=== PATIENT | female | born 1940 | race Hispanic/Latino ===

== ENCOUNTER 2017-03-03 12:54 | Observation (INO) | payer MEDICARE, OTHER ==
[2017-03-03 13:31] VITALS: BMI 24.0
--- NOTE | 2017-03-03 13:43 | ED PDOC ---
Arrival/HPI - General Historian: Patient - History of Present Illness Time/Duration: Prior to Arrival Symptom Onset: Sudden Symptom Course: Resolved <Molly López - Last Filed: 03/03/17 15:31> <Josiahgypsythomas Ray - Last Filed: 03/03/17 15:33> - General Chief Complaint: Syncope Time Seen by Provider: 03/03/17 12:57 - History of Present Illness Narrative History of Present Illness (Text): 03/03/17 13:29 76 yo F w h/o CAD s/p CABG, NIDDM2, Hypertension, Hypercholesterolemia, GERD, IBS presents to ER s/p presyncopal event while shopping in [employer] this morning. Patient states she was in a lovell this morning, did not eat, went shopping and running errands and while in [employer] suddenly felt hot and slightly dizzy and like she would pass out; proceeded to sit down. Denies LOC, denies any trauma. Patient denies CP, SOB, abd pain, headache, diaphoresis, palpitations prior to event. Denies h/o rashes, edema, orthopnea, n/v/d/c, fevers, chills. Patient had identical complaints 2014 after she did not eat that morning, and eventually syncopized in [employer] at that time. Patient was found to have diffuse T wave inversions on EKG at that time and was recommended to have cardiac catheterization, however she refused because she wanted to followup with her hatchery worker in [place]. Patient states she did followup with her hatchery worker who reportedly told her he did not want to do a cardiac catheterization; patient states she never has cath after that discharge. Her hatchery worker reportedly returned in November and she does not yet have a new hatchery worker. PMD: Dr. Childs ([place]) (Molly López) Past Medical History - Provider Review Nursing Documentation Reviewed: Yes - Travel History Have you recently traveled outside [place] w/in the past 3 mons?: No - Cardiac Hx Cardiac Disorders: Yes (open heart sx 10 years ago) Hx Hypertension: Yes - Pulmonary Hx Respiratory Disorders: No - Neurological Hx Neurological Disorder: No (denies) - HEENT Hx HEENT Disorder: (denies) - Renal Hx Renal Disorder: (denies) - Endocrine/Metabolic Hx Diabetes Mellitus Type 2: Yes - Hematological/Oncological Hx Blood Disorders: (denies) - Integumentary Hx Dermatological Disorder: (denies) - Musculoskeletal/Rheumatological Hx Arthritis: Yes (HANDS, KNEES) Hx Falls: Yes (11/08/13) Hx Unsteady Gait: Yes (11/08/13) - Gastrointestinal Hx Gastrointestinal Disorders: (IRRITABLE BOWEL SYNDROME) - Genitourinary/Gynecological Hx Genitourinary Disorders: (denies) - Psychiatric Hx Psychophysiologic Disorder: (denies) Hx Substance Use: No - Surgical History Hx Open Heart Surgery: Yes (10 YRS AGO) - Suicidal Assessment Feels Threatened In Home Enviroment: No <Molly López - Last Filed: 03/03/17 15:31> Family/Social History Family/Social History: CVA/TIA, Diabetes, Hypertension, CAD/SC, Neoplasm/Cancer Smoking Status: Never Smoked Hx Alcohol Use: No Hx Substance Use: No <Molly López - Last Filed: 03/03/17 15:31> - Physician Review Nursing Documentation Reviewed: Yes <Ray Sharp DO - Last Filed: 03/03/17 15:33> Allergies/Home Meds <Molly López - Last Filed: 03/03/17 15:31> <Ray Sharp DO - Last Filed: 03/03/17 15:33> Allergies/Adverse Reactions: Allergies No Known Allergies Allergy (Verified 11/08/13 14:00) Home Medications: Home Meds Medication Instructions Recorded Confirmed Amlodipine Besylate [Norvasc] 10 mg PO DAILY 11/08/13 03/03/17 Aspirin 81 mg PO DAILY 11/08/13 03/03/17 Atenolol 100 mg PO DAILY 11/08/13 03/03/17 Glyburide 2.5 mg PO DAILY 11/08/13 03/03/17 Rabeprazole Sodium [Aciphex] 20 mg PO DAILY 11/08/13 03/03/17 Simvastatin [Zocor] 60 mg PO DAILY 11/08/13 03/03/17 Valsartan/Hydrochlorothiazide 1 tab PO DAILY 03/03/17 03/03/17 [Valsartan and Hydrochlorothiazide 12.5 mg-160] Review of Systems - Physician Review All systems were reviewed & negative as marked: Yes - Review of Systems Constitutional: Normal. absent: Fatigue, Fevers Eyes: Normal. absent: Vision Changes, Photophobia ENT: Normal Respiratory: Normal. absent: SOB, Cough, Sputum, Wheezing Cardiovascular: Normal. absent: Chest Pain, Palpitations, Edema, Calf Pain, CUEVAS , Orthopnea, Syncope (pre-syncope, no LOC, no head trauma) Gastrointestinal: Normal. absent: Abdominal Pain, Constipation, Diarrhea, Nausea, Vomiting Genitourinary Female: Normal. absent: Dysuria, Frequency Musculoskeletal: Normal. absent: Back Pain, Neck Pain Skin: Normal. absent: Rash, Skin Lesions Neurological: Normal. absent: Headache, Dizziness Endocrine: Normal. absent: Diaphoresis, Polyuria, Polydipsia Hemo/Lymphatic: Normal. absent: Adenopathy Psychiatric: Normal. absent: Depression <Molly López - Last Filed: 03/03/17 15:31> Physical Exam Vital Signs Reviewed: Yes Temperature: Afebrile Blood Pressure: Normal Pulse: Regular Respiratory Rate: Normal Appearance: Positive for: Well-Appearing, Non-Toxic, Comfortable Pain Distress: None Mental Status: Positive for: Alert and Oriented X 3 Finger Stick Blood Glucose: 263 - Systems Exam Head: Present: Atraumatic, Normocephalic Pupils: Present: PERRL Extroacular Muscles: Present: EOMI Conjunctiva: Present: Normal. No: Icteric Ears: Present: Normal Mouth: Present: Moist Mucous Membranes Neck: Present: Normal Range of Motion. No: Meningeal Signs, JVD Respiratory/Chest: Present: Clear to Auscultation, Decreased Breath Sounds ( mildly diminished diffusely). No: Respiratory Distress, Accessory Muscle Use, Wheezes, Retracting Cardiovascular: Present: Regular Rate and Rhythm, Murmurs (3/6 systolic LSB), Normal S1, S2 Abdomen: Present: Normal Bowel Sounds. No: Tenderness, Distention, Peritoneal Signs Upper Extremity: Present: Normal Inspection. No: Cyanosis, Edema Lower Extremity: Present: Normal Inspection. No: Edema, CALF TENDERNESS Neurological: Present: GCS=15, CN II-XII Intact, Speech Normal Skin: Present: Warm, Dry, Normal Color. No: Rashes Psychiatric: Present: Alert, Oriented x 3, Normal Insight, Normal Concentration <Molly López - Last Filed: 03/03/17 15:31> Medical Decision Making - RAD Interpretation Pharmacy Affairs Assistant: Radiologist - EKG Interpretation Interpreted by ED Physician: Yes Type: 12 lead EKG Comparison: Similar to previous EKG (slighlty deeper T inversions V1-V5) <MaribelMolly - Last Filed: 03/03/17 15:31> <aRy Sahrp DO - Last Filed: 03/03/17 15:33> ED Course and Treatment: 03/03/17 14:03 76 yo F w h/o CAD s/p CABG, NIDDM2, Hypertension, Hypercholesterolemia presents with pre-syncope while shopping, did not eat or drink anything this morning. Labs, EKG, Urinalysis, CXR, CT head to r/o bleed (Molly López) A 76 year old female with near syncope. In agreement with resident note, which includes further HPI details. Patient was seen and evaluated with resident, came up with plan and treatment together. (Ray Sharp DO) - Lab Interpretations Lab Results: 03/03/17 13:45 03/03/17 13:45 Lab Results 03/03/17 13:45: Sodium 140, Potassium 4.2, Chloride 101, Carbon Dioxide 24, Anion Gap 19, BUN 19, Creatinine 1.0, Est GFR ( Amer) > 60, Est GFR (Non- Af Amer) 54, Random Glucose 241 H, Calcium 10.0, Magnesium 1.9, Total Bilirubin 1.1, AST 23, ALT 35, Alkaline Phosphatase 128, Lactate Dehydrogenase 417, Total Creatine Kinase 42, Troponin I < 0.01, Total Protein 8.0, Albumin 4.4, Globulin 3.6, Albumin/Globulin Ratio 1.2 03/03/17 13:45: WBC 8.4, RBC 4.35, Hgb 12.6, Hct 36.1, MCV 83.0, MCH 29.0, MCHC 34.9, RDW 13.1, Plt Count 228, MPV 13.0 H, Gran % 44.3 L, Lymph % (Auto) 41.7 H , [place] % (Auto) 9.2 H, Eos % (Auto) 4.1, Baso % (Auto) 0.7, Gran # 3.70, Lymph # 3.5 H, [place] # 0.8 H, Eos # 0.3, Baso # 0.06 - RAD Interpretation Narrative RAD Interpretations (Text): 03/03/17 14:18 CXR - No active disease (Molly López) Radiology Orders: 03/03/17 13:40 HEAD W/O CONTRAST [CT] Stat CHEST PORTABLE [RAD] Stat - EKG Interpretation EKG Interpretation (Text): 03/03/17 14:06 SR with PACs, rate 63bpm, RBBB, T wave inversions leads V1-V5 (deeper than EKG 2013). Nonspecific ST/T changes (Molly López) - PA / PERSONAL INJURY LAW SPECIALIST / Resident Statement HIEU has reviewed & agrees with the documentation as recorded. / has examined the patient and agrees with the treatment plan. <Molyl López - Last Filed: 03/03/17 15:31> - PA / PERSONAL INJURY LAW SPECIALIST / Resident Statement HIEU has reviewed & agrees with the documentation as recorded. / has examined the patient and agrees with the treatment plan. - Scribe Statement The provider has reviewed the documentation as recorded by the Scribe <Ray Sharp DO - Last Filed: 03/03/17 15:33> - Scribe Statement Francy Allen Provider Scribe Attestation: All medical record entries made by the Scribe were at my direction and personally dictated by me. I have reviewed the chart and agree that the record accurately reflects my personal performance of the history, physical exam, medical decision making, and the department course for this patient. I have also personally directed, reviewed, and agree with the discharge instructions and disposition. (Ray Sharp DO) Disposition/Present on Arrival - Present on Arrival Any Indicators Present on Arrival: No History of DVT/PE: No History of Uncontrolled Diabetes: No Urinary Catheter: No History of Decub. Ulcer: No History Surgical Site Infection Following: None - Disposition Have Diagnosis and Disposition been Completed?: Yes Disposition Time: 15:30 Patient Plan: Admission <Molly López - Last Filed: 03/03/17 15:31> <Ray Sharp DO - Last Filed: 03/03/17 15:33> - Disposition Diagnosis: Syncope Disposition: HOSPITALIZED Condition: STABLE Discharge Instructions (ExitCare): Syncope (ED) Referrals: PerspecSysmorenita Olson, [Primary Care Provider] - Follow up with primary
[2017-03-03 13:52] LABS: ADD MANUAL DIFF? NO
[2017-03-03 13:54] LABS: BASO # 0.06 K/mm3 (0.0-2.0); BASO % 0.7 % (0.0-3.0); EOS # 0.3 (0.0-0.7); EOS % 4.1 % (1.5-5.0); GRAN % 44.3 % (50.0-68.0); HEMATOCRIT 36.1 % (36.0-48.0); LYMPH # 3.5 (1.2-3.4); LYMPH % 41.7 % (22.0-35.0); MEAN CORPUSCULAR HGB CONC 34.9 g/dl (31.0-37.0); MONO # 0.8 (0.1-0.6); MONO % 9.2 % (1.0-6.0); PLATELET COUNT 228 10^3/uL (120.0-450.0); RED CELL DISTRIBUTION WIDTH 13.1 % (11.5-14.5); WHITE BLOOD COUNT 8.4 10^3/ul (4.5-11.0)
[2017-03-03 14:04] LABS: ALB/GLOB RATIO 1.2 (1.1-1.8); ALKALINE PHOSPHATASE 128 U/L (38-133); ALT/SGPT 35 U/L (7-56); AST/SGOT 23 U/L (15-39); BILIRUBIN,TOTAL 1.1 mg/dL (0.2-1.3); BLOOD UREA NITROGEN 19 mg/dL (7-21); CARBON DIOXIDE 24 mmol/L (21-33); CHLORIDE 101 mmol/L (98-107); GFR AFRICAN-AMERICAN > 60; GLUCOSE,RANDOM 241 mg/dL (70-110); MAGNESIUM 1.9 mg/dL (1.7-2.2); POTASSIUM 4.2 mmol/L (3.6-5.0); SODIUM 140 mmol/L (132-148)
--- NOTE | 2017-03-03 14:09 | RAD ---
HISTORY: syncope COMPARISON: 11/08/2013 FINDINGS: LUNGS: No active pulmonary disease. PLEURA: No significant pleural effusion identified, no pneumothorax apparent. CARDIOVASCULAR: Normal. OSSEOUS STRUCTURES: Sternal wires VISUALIZED UPPER ABDOMEN: Normal. OTHER FINDINGS: None. IMPRESSION: No active disease.
[2017-03-03 14:18] LABS: TROPONIN I < 0.01 ng/mL
--- NOTE | 2017-03-03 15:12 | CT ---
PROCEDURE: CT scan brain dated 03/03/2017. HISTORY: r/o bleed COMPARISON: None available. TECHNIQUE: Axial computed tomography images were obtained through the head/brain without intravenous contrast. Radiation dose: 754.[address] exam was performed using one or more of the following dose reduction techniques: Automated exposure control, adjustment of the mA and/or kV according to patient size, and/or use of iterative reconstruction technique. FINDINGS: HEMORRHAGE: No acute parenchymal, subarachnoid or extra-axial hemorrhage. BRAIN: Mild chronic periventricular technique periventricular white matter ischemic changes. Moderate generalized volume loss. Vascular calcifications are present. VENTRICLES: Ventricles are large due to volume loss however there is no evidence of hydrocephalus. CALVARIUM: Unremarkable. PARANASAL SINUSES: Unremarkable as visualized. No significant inflammatory changes. MASTOID AIR CELLS: Unremarkable as visualized. No inflammatory changes. OTHER FINDINGS: None. IMPRESSION: No acute intracranial hemorrhage. Chronic white matter ischemic changes and moderate volume loss.
--- NOTE | 2017-03-03 15:19 | CARD ---
APPROVED REPORT EKG Measurement Heart [id number] <Conclusion> Sinus rhythm with premature atrial complexes Right bundle branch block Abnormal ECG
[2017-03-03] MEDS ORDERED: Pneumococcal 23-Valent Vaccine IM ONE (20:26)
[2017-03-03] MEDS: Insulin Reg-LOW-Coverage SC SCH (21:44)
--- NOTE | 2017-03-03 21:57 | HP ---
HISTORY OF PRESENT ILLNESS: The patient is a 76-year-old who came to Emergency Room because of rondai ng very dizzy, as if she was going to pass out. She woke up this morning, went to [employer] to do [employer] shopping. Said she was rushing to do some groceries. She did not eat that well. She thinks becau se of that she felt very weak, dizzy, and she almost passed out, so she was brought to Emergency Room for further evaluation. Denies any headache. No nausea, vomiting. No chest pain, no shortness of breath, no fever, no chills. Denies any weakness or numbness. The patient states she had similar sy mptoms a couple of years ago with almost similar kind of scenario, that she did not eat, and she pass ed out in [employer] while doing shopping. Then, she was brought to Emergency Room in 2013, also. She was found to have some EKG changes. She was advised to have cardiac cath done, but she opted to fol low up with her own furnace hand, who thought that this was not necessary, so she never had it done. PAST MEDICAL HISTORY: 1. Hypertension. 2. Status post open heart surgery. 3. Icc-umbkdey-lgghdigqj diabetes. 4. Hypertension. 5. Hyperlipidemia. 6. Irritable bowel syndrome. ALLERGIES: She is not allergic to any medications. MEDICATIONS AT HOME: She is on Aciphex 20 mg daily, aspirin 81 daily. She is on ramipril 10 mg karuna y, Micronase 2.5 daily, simvastatin 20 mg daily, valsartan 160/12.5, atenolol 100 mg daily. SOCIAL HISTORY: Denies smoking or drinking. REVIEW OF SYSTEMS: Significant for feeling weak and tired, but feels a lot better as compared to be ore. PHYSICAL EXAMINATION: GENERAL: She is awake and alert, communicative. VITAL SIGNS: She is afebrile, pulse 60, respirations 18, blood pressure 153/75. LUNGS: Bilateral fair airflow, no rhonchi or crackle. HEART: S1, S2 audible. No murmur. ABDOMEN: Soft, nontender, no rebound, no guarding. NEUROLOGIC: The patient is awake and alert, communicative. Moves all extremities. LABORATORY DATA: WBC 8.4, hemoglobin 12.6, hematocrit 36, platelets 228. Chemistry: Sodium 140, po tassium 4.2, chloride 101, CO2 24, BUN 19, creatinine 1.0, blood sugar of . LFTs are within nor mal limits. DIAGNOSTIC DATA: She had CT scan of the head done that is unremarkable. X-ray of chest is unremarka ble. ASSESSMENT: 1. Near syncope, probably secondary to hypoglycemia and dehydration. 2. Coronary artery disease, status post open heart surgery. 3. Hypertension. 4. Hyperlipidemia. 5. Lex-kfbyplv-adzghdemi diabetes. PLAN: The patient will be placed in observation. Will follow up cardiac enzymes. Will follow up he r blood sugar. I will order for carotid Doppler, order for MRI. Cardiac evaluation by Dr. Fried will be requested and will re-evaluate this patient in a.m. Daniel Kimble MD cc: [phone] TT: 03/03/2017 21:56:55 maury
[2017-03-03 22:15] LABS: CHOLESTEROL 135 mg/dL (130-200)
[2017-03-03 22:28] LABS: TROPONIN I < 0.01 ng/mL
[2017-03-04] MEDS ORDERED: Pantoprazole 40 mg EC Tab PO SCH (06:30)
[2017-03-04 07:38] LABS: ALB/GLOB RATIO 1.1 (1.1-1.8); ALKALINE PHOSPHATASE 109 U/L (38-133); ALT/SGPT 30 U/L (7-56); AST/SGOT 20 U/L (15-39); BILIRUBIN,TOTAL 1.2 mg/dL (0.2-1.3); BLOOD UREA NITROGEN 21 mg/dL (7-21); CALCIUM 9.4 mg/dL (8.4-10.5); CARBON DIOXIDE 28 mmol/L (21-33); CHLORIDE 103 mmol/L (98-107); GFR AFRICAN-AMERICAN > 60; GLUCOSE,RANDOM 217 mg/dL (70-110); MAGNESIUM 1.9 mg/dL (1.7-2.2); POTASSIUM 3.6 mmol/L (3.6-5.0); SODIUM 140 mmol/L (132-148)
[2017-03-04 07:39] LABS: FREE T4 0.99 ng/dL (0.78-2.19)
[2017-03-04 07:53] LABS: THYROID STIMULATING HORMONE 1.47 mIU/mL (0.46-4.68)
[2017-03-04] MEDS: Insulin Reg-LOW-Coverage SC SCH ×3 (09:49→17:10)
[2017-03-04] MEDS ORDERED: ATENOLOL 100 MG PO SCH (10:00)
[2017-03-04] MEDS ORDERED: Non Formulary Medication (Simvastatin [Zocor] 20 MG) PO SCH (10:00)
--- NOTE | 2017-03-04 11:48 | US ---
PROCEDURE: Bilateral carotid artery duplex ultrasound HISTORY: Carotid stenosis syncope PHYSICIAN(S): Karthikeyan Saldana MD. TECHNIQUE: Duplex sonography and color-flow Doppler were used to evaluate the carotid bifurcations and limited segments of the vertebral arteries bilaterally. FINDINGS: There is moderate echogenic heterogeneous plaque noted at the carotid bifurcations bilaterally. The peak systolic velocity in the proximal right internal carotid artery is 93 cm/sec. This corresponds to a 20 to 39% proximal right ICA stenosis. Normal systolic velocities are noted in the proximal right external carotid artery. There is antegrade flow in the right vertebral artery. The peak systolic velocity in the proximal left internal carotid artery is 91 cm/sec. This corresponds to a 20 to 39% proximal left ICA stenosis. Normal systolic velocities are noted in the proximal left external carotid artery. There is antegrade flow in the left vertebral artery. IMPRESSION: 1. Bilateral 20-39% proximal ICA stenoses. 2. Antegrade flow in both vertebral arteries.
--- NOTE | 2017-03-04 12:36 | PN ---
DATE: 03/04/2017 SUBJECTIVE: The patient is a 76-year-old seen and examined, seems to be doing okay. Denies any naus ea or vomiting, no diarrhea. PHYSICAL EXAMINATION: VITAL SIGNS: She is afebrile, pulse 62, respirations 18, blood pressure 123/62. LUNGS: Bilateral fair airflow. No rhonchi or crackle. HEART: S1, S2 audible. ABDOMEN: Soft, nontender. No rebound, no guarding. NEUROLOGIC: She is awake and alert, communicative, ambulatory. LABORATORY: Sodium 140, potassium 3.6, chloride 103, CO2 of 28, BUN 21, creatinine 1.0, blood sugar of 217. Hemoglobin A1c is 7.9. Two sets of troponins are negative. She had carotid Doppler done that shows bilateral 20-39% proximal ICA. CT scan of the head is unremarkable. ASSESSMENT: 1. Near syncope, probably secondary to dehydration. 2. History of hypertension. 3. Noninsulin-dependent diabetes. 4. Hyperlipidemia. PLAN: Will get MRI of the brain. Her blood sugar is being monitored Awaiting cardiology input. If her neuro workup is negative, and when cardiology evaluation done, if patient does not need further i ntervention, she can be discharged today or tomorrow morning. Daniel Kimble MD cc: [phone] TT: 03/04/2017 12:35:43 Confirmation # [id number] Dictation # [id number]
--- NOTE | 2017-03-04 14:45 | MRI ---
PROCEDURE: MRI BRAIN WITHOUT CONTRAST HISTORY: Syncope COMPARISON: Noncontrast head CT from 03/03/2017 TECHNIQUE: Multiplanar, multisequence MR images of the brain were obtained without intravenous contrast enhancement. FINDINGS: HEMORRHAGE: None DWI: No evidence of an acute or early subacute infarction. BRAIN PARENCHYMA: There are mild chronic microangiopathic changes. There is no mass, mass effect or abnormal extra-axial fluid collection. There is a partially empty sella, otherwise the midline sagittal structures are normal. VENTRICLES: There is mild age-related global parenchymal volume loss and proportionate enlargement of the ventricles and cortical sulci. CRANIUM: There is normal bone marrow signal pattern. ORBITS: Within normal limits. PARANASAL SINUSES/MASTOIDS: Predominantly clear. VASCULAR SYSTEM: There are normal signal voids in the larger intracranial arteries. OTHER FINDINGS: None. IMPRESSION: No acute intracranial abnormality. Mild chronic microangiopathic changes and mild age-related global parenchymal volume loss.
[2017-03-04 16:44] VITALS: BP 121/55; RESP 20; TEMP 98; O2SAT 98
[2017-03-04 18:33] VITALS: PULSE 65
--- NOTE | 2017-04-23 22:32 | DS ---
The patient is a 76-year-old who was admitted because of near syncope, probably secondary to dehydrat ion. She had continual workup done including a carotid Doppler, MRI of the brain. Both were unremar kable except mild chronic microangiopathic changes and mild age-related global parenchymal atrophy an d carotid Doppler was unremarkable, so she was given IV fluids. The patient started to do well. She ambulated without feeling dizzy, so she was discharged. She was discharged on 03/04. She is advise d to resume her medication and follow up with PMD. Daniel Kimble MD cc: [phone] TT: 04/23/2017 22:31:57 an
== END 2017-03-04 18:45 | disposition home or self-care (01) ==
LOC: ED 12:54 → ERH 15:23 → 2RNO 18:00
PROVIDERS: ADMIT Internal Medicine; ATTEND Internal Medicine
DX: R55 Syncope and collapse (principal); E11.9 Type 2 diabetes mellitus without complications; I25.10 Atherosclerotic heart disease of native coronary artery without angina pectoris; K21.9 Gastro-esophageal reflux disease without esophagitis; I10 Essential (primary) hypertension; K58.9 Irritable bowel syndrome, unspecified; E78.00 Pure hypercholesterolemia, unspecified; Z79.84 Long term (current) use of oral hypoglycemic drugs; E78.5 Hyperlipidemia, unspecified; Z95.1 Presence of aortocoronary bypass graft
CPT/HCPCS: 36415; 70450; 70551; 71010; 80053; 80061; 82550; 82948; 83036; 83615; 83735; 84100; 84439; 84443; 84484; 85025; 93005; 93880; 99285; G0378